=== PATIENT | female | born 1945 | race Caucasian/White ===

== ENCOUNTER → 2016-11-11 | Outpatient (CLI) | payer MEDICARE ==
[~2016-11-11] MED LIST: ATENOL; ATIVAN1 MG PO; CIPROFLOXACIN500 MG PO; CRESTOR; DIFLUCAN150 MG PO; NORVASC
== END | disposition home or self-care (01) ==
LOC: MAMMO 02:47
DX: Z12.31 Encounter for screening mammogram for malignant neoplasm of breast (principal)

== ENCOUNTER → 2017-11-11 | Outpatient (CLI) | payer MEDICARE | LOC: MAMMO 02:18 | DX: Z12.31 Encounter for screening mammogram for malignant neoplasm of breast (principal); Z13.820 Encounter for screening for osteoporosis; M81.0 Age-related osteoporosis without current pathological fracture; N95.9 Unspecified menopausal and perimenopausal disorder ==

== ENCOUNTER → 2023-11-24 | Outpatient (CLI) | payer MEDICARE | END | disposition home or self-care (01) | LOC: ORTHO 02:26 | PROVIDERS: ATTEND Orthopaedic Surgery | DX: M17.12 Unilateral primary osteoarthritis, left knee (principal); M25.562 Pain in left knee ==

== ENCOUNTER 2024-07-09 10:12 | Emergency (ER) | payer MEDICARE ==
[~2024-07-09] VITALS: Ht 157.4 cm; Wt 80.7 kg
[2024-07-09] MEDS ORDERED: AMLODIPINE BESYL5 MG PO (10:19)
[2024-07-09] MEDS ORDERED: ATENOLOL50 M1 PO (10:19)
[2024-07-09] MEDS ORDERED: hydrALAZINE hydrochloride 20 MG/ML VIAL IV ONE (10:35)
[2024-07-09] MEDS ORDERED: SODIUM CHLORIDE 0.9% 1,000 ML IV ONE (10:35)
[2024-07-09 10:42] LABS: BASO # 0.1 10*3/uL (0.0-0.1); BASO % 0.6 % (0.0-1.0); EOS # 0.1 10*3/uL (0.0-0.4); EOS % 1.2 % (1.0-4.0); HEMATOCRIT 39.8 % (37.0-47.0); MEAN CELL VOLUME 91.9 fl (81.0-99.0); MEAN CORPUSCULAR HGB 29.8 pg (27.0-31.0); MEAN CORPUSCULAR HGB CONC 32.4 g/dl (33.0-37.0); MEAN PLATELET VOLUME 10.1 fl (9.6-12.3); MONO # 0.6 10*3/uL (0.1-1.0); MONO % 6.1 % (3.0-9.0); NEUT # 8.4 10*3/uL (2.3-7.9); NEUT % 81.1 % (47.0-73.0); PLATELET COUNT AUTOMATED 336 10*3/uL (130-400); RED BLOOD COUNT 4.33 10*6/uL (4.10-5.10); RED CELL DISTRI WIDTH 13.7 % (0-14.5); WHITE BLOOD COUNT 10.3 10*3/uL (4.8-10.8)
[2024-07-09 11:02] LABS: BUN 16 mg/dl (9-23); CHLORIDE 103 mmol/L (98-107); POTASSIUM 3.8 mmol/L (3.4-5.1)
[2024-07-09] MEDS ORDERED: Labetalol Hydrochloride 20 MG/4 ML SYR IV ONE (11:20)
[2024-07-09] MEDS ORDERED: Ondansetron Hydrochloride 4 MG/2 ML VIAL IV ONE (11:20)
== END 2024-07-09 12:11 | disposition home or self-care (01) ==
LOC: ED 10:12
PROVIDERS: Emergency Medicine
DX: I16.0 Hypertensive urgency (principal); E11.9 Type 2 diabetes mellitus without complications

== ENCOUNTER 2024-07-12 00:13 | Emergency (ER) | payer MEDICARE ==
[~2024-07-12 00:13] MED LIST changes: +AMLODIPINE BESYL5 MG PO; +ATENOLOL50 M1 PO
[2024-07-12] MEDS ORDERED: LORazepam 1 MG TAB PO ONE (00:30)
== END 2024-07-12 02:04 | disposition home or self-care (01) ==
LOC: ED 00:13
DX: I11.0 Hypertensive heart disease with heart failure (principal); F41.9 Anxiety disorder, unspecified; E78.00 Pure hypercholesterolemia, unspecified

== ENCOUNTER → 2024-07-24 | Outpatient (CLI) | payer MEDICARE ==
[2024-07-24 12:59] LABS: HEMATOCRIT 41.1 % (37.0-47.0); MEAN CELL VOLUME 89.3 fl (81.0-99.0); MEAN CORPUSCULAR HGB 29.8 pg (27.0-31.0); MEAN CORPUSCULAR HGB CONC 33.3 g/dl (33.0-37.0); MEAN PLATELET VOLUME 10.3 fl (9.6-12.3); RED BLOOD COUNT 4.6 10*6/uL (4.10-5.10); RED CELL DISTRI WIDTH 13.6 % (0-14.5); WHITE BLOOD COUNT 9.9 10*3/uL (4.8-10.8)
[2024-07-24 13:22] LABS: ALKALINE PHOSPHATASE 100 U/L (46-116); BUN 15 mg/dl (9-23); CHLORIDE 104 mmol/L (98-107); POTASSIUM 4.2 mmol/L (3.4-5.1); SGPT/ALT 13 U/L (5-49); TOTAL PROTEIN 7.7 gm/dL (6.0-8.0)
[2024-07-24 16:34] LABS: BILIRUBIN Negative (Negative); BLOOD Negative (Negative); CLARITY Clear (Clear); COLOR Yellow (Yellow); GLUCOSE Negative (Negative); KETONE Negative (Negative); LEUKO ESTERASE Trace (Negative); NITRITE Negative (Negative); PH 5.5 (4.5-8.0); SPECIFIC GRAVITY 1.015 (1.001-1.030); UROBILINOGEN 0.2 E.U./dl (0.0-1.0)
[2024-07-24 16:46] LABS: BACTERIA 1+; EPITHELIAL CELLS 16-20; MUCOUS TRACE; RBC 0-2 rbc/hpf (0-2)
== END | disposition home or self-care (01) ==
LOC: LAB 12:24
PROVIDERS: ATTEND Physician Assistant
DX: I10 Essential (primary) hypertension (principal); R23.2 Flushing; H93.A9 Pulsatile tinnitus, unspecified ear; Z79.899 Other long term (current) drug therapy

== ENCOUNTER → 2024-07-26 | Outpatient (CLI) | payer MEDICARE | END | disposition home or self-care (01) | LOC: LAB 09:31 | PROVIDERS: ATTEND Physician Assistant | DX: I10 Essential (primary) hypertension (principal); R23.2 Flushing; H93.A9 Pulsatile tinnitus, unspecified ear ==